=== PATIENT | female | born 1955 | race Caucasian/White ===

== ENCOUNTER → 2023-05-14 06:36 | Day surgery (SDC) | payer MEDICARE, OTHER, SELFPAY | LOC: GI 06:36 | PROVIDERS: ATTENDING PHYSICIAN Internal Medicine Gastroenterology | DX: K62.5 Hemorrhage of anus and rectum (principal); R19.7 Diarrhea, unspecified; K57.30 Diverticulosis of large intestine without perforation or abscess without bleeding; K64.0 First degree hemorrhoids; K63.89 Other specified diseases of intestine; D12.0 Benign neoplasm of cecum; D12.4 Benign neoplasm of descending colon; D12.5 Benign neoplasm of sigmoid colon; K63.5 Polyp of colon; R13.10 Dysphagia, unspecified; K44.9 Diaphragmatic hernia without obstruction or gangrene; K22.89 Other specified disease of esophagus; K31.89 Other diseases of stomach and duodenum; R11.0 Nausea; K29.50 Unspecified chronic gastritis without bleeding; K20.80 Other esophagitis without bleeding | CPT/HCPCS: 45385; 45380; 43239; 88305; 88342 ==

== ENCOUNTER → 2023-12-08 11:19 | Outpatient (REF) | payer MEDICARE, OTHER, SELFPAY ==
[2023-12-08 15:41] LABS: % Basophils 0.4 % (0-2); % Eosinophils 1.6 % (0-6); % Immature Granulocytes 0.2 % (0-0.5); % Lymphocytes 45.2 % (20.5-51.1); % Monocytes 8.9 % (1.7-9.3); % Neutrophils 43.7 % (42.2-75.2); Absolute Eosinophils 0.1 10^3/uL (0-0.7); Absolute Lymphocytes 2.3 10^3/uL (1.2-3.4); Absolute Monocytes 0.5 10^3/uL (0.1-0.6); Absolute Neutrophils 2.2 10^3/uL (1.4-6.5); Hematocrit 40.3 % (37.0-47.0); Hemoglobin 13.5 g/dL (12.0-16.0); Mean Corp Hgb Conc. 33.5 g/dL (33.0-37.0); Mean Corpuscular Hgb 28.4 pg (27.0-31.0); Mean Corpuscular Volume 84.7 fL (81.0-99.0); Mean Platelet Volume 9.5 fL (7.4-10.4); Nucleated Red Blood Cells % 0 %; Platelet Count 264 10^3/uL (130-400); Red Blood Cell Count 4.76 10^6/uL (4.20-5.40); Red Cell Dist. Width 12.1 % (11.5-14.5); White Blood Cell Count 5.1 10^3/uL (4.8-10.8)
[2023-12-08 15:52] LABS: ALT (SGPT) 24 U/L (0-35); AST (SGOT) 23 U/L (14-36); Albumin 4.7 g/dl (3.5-5.0); Alkaline Phosphatase 69 U/L (38-126); Blood Urea Nitrogen 16 mg/dl (7-17); Carbon Dioxide 27 mmol/L (22-30); Chloride 104 mmol/L (98-107); Glucose 107 mg/dl (70-99); HDL Cholesterol 67 mg/dl; LDL Cholesterol, Calculated 84 mg/dl; Potassium 4.5 mmol/L (3.5-5.1); Sodium 142 mmol/L (135-145); Total Bilirubin 0.8 mg/dl (0.2-1.3); Total Cholesterol 170 mg/dl (50-199); Triglyceride 96 mg/dl (10-149); Very Low Density Lipoprotein 19 mg/dl (0-30); eGFR > 60.00
[2023-12-08 16:09] LABS: Vitamin D, 25-OH*** 66.9 ng/mL (30-80)
[2023-12-08 16:17] LABS: Urine Albumin Negative (Neg - Trace); Urine Bilirubin Negative (Negative); Urine Character Clear (Clear); Urine Color Yellow; Urine Glucose Negative (Negative); Urine Ketone Negative (Negative); Urine Leukocyte Negative (Negative); Urine Nitrite Negative (Negative); Urine Occult Blood Negative (Negative); Urine Specific Gravity 1.015 (<1.030); Urine Urobilinogen Negative (Neg - 1+)
[2023-12-08 16:23] LABS: TSH Reflex To Free T4 1.39 uIU/ml (0.47-4.68)
[2023-12-09 08:15] LABS: Glycohemoglobin (HgbA1c) 5.6 % (4.0-5.6)
[2023-12-09 12:46] LABS: tTG IgA Antibody 5.9 EU/ml (0-19)
[2023-12-10 06:48] LABS: IgA 324 mg/dl (70-400)
== END ==
LOC: HWLAB 11:19
PROVIDERS: ATTENDING PHYSICIAN Internal Medicine Gastroenterology; FAMILY PHYSICIAN Nurse Practitioner Adult Health
DX: R19.7 Diarrhea, unspecified (principal); E78.00 Pure hypercholesterolemia, unspecified; R73.03 Prediabetes; M85.80 Other specified disorders of bone density and structure, unspecified site; I10 Essential (primary) hypertension; Q50.39 Other congenital malformation of ovary; K83.8 Other specified diseases of biliary tract
CPT/HCPCS: 36415; 80053; 80061; 81003; 82306; 82653; 82784; 83036; 83516; 83993; 84443; 85025; 87328; 87329

== ENCOUNTER → 2023-12-18 12:00 | Outpatient (REF) | payer MEDICARE, OTHER, SELFPAY ==
[2023-12-18 16:02] LABS: % Basophils 0.3 % (0-2); % Eosinophils 1.4 % (0-6); % Immature Granulocytes 0.2 % (0-0.5); % Lymphocytes 45.8 % (20.5-51.1); % Monocytes 7.2 % (1.7-9.3); % Neutrophils 45.1 % (42.2-75.2); Absolute Eosinophils 0.1 10^3/uL (0-0.7); Absolute Lymphocytes 2.9 10^3/uL (1.2-3.4); Absolute Monocytes 0.5 10^3/uL (0.1-0.6); Absolute Neutrophils 2.8 10^3/uL (1.4-6.5); Hematocrit 39.5 % (37.0-47.0); Hemoglobin 13.3 g/dL (12.0-16.0); Mean Corp Hgb Conc. 33.7 g/dL (33.0-37.0); Mean Corpuscular Hgb 29.2 pg (27.0-31.0); Mean Corpuscular Volume 86.8 fL (81.0-99.0); Nucleated Red Blood Cells % 0 %; Platelet Count 255 10^3/uL (130-400); Red Blood Cell Count 4.55 10^6/uL (4.20-5.40); Red Cell Dist. Width 12.1 % (11.5-14.5); White Blood Cell Count 6.2 10^3/uL (4.8-10.8)
[2023-12-18 16:18] LABS: C-Reactive Protein < 5.00 mg/L (0.0-10.00)
[2023-12-18 16:45] LABS: Erythrocyte Sed Rate 11 mm/hour (0-20)
[2023-12-18 16:54] LABS: Ferritin 23.8 ng/ml (11.1-264.0)
[2023-12-18 17:23] LABS: Rheumatoid Agglutinin Less Than 10 IU (<10 IU)
[2023-12-21 09:22] LABS: ANA, IgG Reflex to HEp-2 None Detected (None Detected)
[2023-12-21 10:05] LABS: CCP Antibody IgG/IgA 2 Units (0-19)
== END ==
LOC: HWLAB 12:00
PROVIDERS: ATTENDING PHYSICIAN Orthopaedic Surgery Hand Surgery; FAMILY PHYSICIAN Nurse Practitioner Adult Health
DX: M79.641 Pain in right hand (principal); M79.642 Pain in left hand
CPT/HCPCS: 36415; 82728; 85025; 85652; 86038; 86140; 86200; 86430

== ENCOUNTER → 2024-01-25 13:55 | Outpatient (REF) | payer MEDICARE, OTHER, SELFPAY | LOC: PAVMRI 13:55 | PROVIDERS: ATTENDING PHYSICIAN Nurse Practitioner Adult Health | DX: R29.818 Other symptoms and signs involving the nervous system (principal); R25.2 Cramp and spasm; H53.9 Unspecified visual disturbance | CPT/HCPCS: 70553; A9585 ==

== ENCOUNTER → 2024-01-27 10:54 | Outpatient (REF) | payer MEDICARE, OTHER, SELFPAY | LOC: PAVMRI 10:54 | PROVIDERS: ATTENDING PHYSICIAN Nurse Practitioner Adult Health | DX: K86.2 Cyst of pancreas (principal); Q50.39 Other congenital malformation of ovary | CPT/HCPCS: 72197; 74183; A9575 ==

== ENCOUNTER → 2024-03-03 12:01 | Outpatient (REF) | payer MEDICARE, OTHER, SELFPAY ==
[2024-03-03 16:11] LABS: % Basophils 0.2 % (0-2); % Eosinophils 1.1 % (0-6); % Immature Granulocytes 0.8 % (0-0.5); % Monocytes 7.8 % (1.7-9.3); % Neutrophils 47.1 % (42.2-75.2); Absolute Eosinophils 0.1 10^3/uL (0-0.7); Absolute Immature Granulocytes 0.1 10^3/uL (0-0.05); Absolute Lymphocytes 2.7 10^3/uL (1.2-3.4); Absolute Monocytes 0.5 10^3/uL (0.1-0.6); Absolute Neutrophils 2.9 10^3/uL (1.4-6.5); Hematocrit 39.9 % (37.0-47.0); Hemoglobin 12.9 g/dL (12.0-16.0); Mean Corp Hgb Conc. 32.3 g/dL (33.0-37.0); Mean Corpuscular Hgb 28.8 pg (27.0-31.0); Mean Corpuscular Volume 89.1 fL (81.0-99.0); Nucleated Red Blood Cells % 0 %; Platelet Count 309 10^3/uL (130-400); Red Blood Cell Count 4.48 10^6/uL (4.20-5.40); Red Cell Dist. Width 12.1 % (11.5-14.5); White Blood Cell Count 6.3 10^3/uL (4.8-10.8)
[2024-03-03 16:15] LABS: ALT (SGPT) 32 U/L (0-35); AST (SGOT) 27 U/L (14-36); Albumin 4.5 g/dl (3.5-5.0); Alkaline Phosphatase 74 U/L (38-126); Blood Urea Nitrogen 14 mg/dl (7-17); Calcium 9.6 mg/dl (8.4-10.2); Carbon Dioxide 25 mmol/L (22-30); Chloride 105 mmol/L (98-107); Erythrocyte Sed Rate 9 mm/hour (0-20); Glucose 91 mg/dl (70-99); HDL Cholesterol 61 mg/dl; LDL Cholesterol, Calculated 83 mg/dl; Potassium 4.5 mmol/L (3.5-5.1); Sodium 140 mmol/L (135-145); Total Bilirubin 0.6 mg/dl (0.2-1.3); Total Cholesterol 162 mg/dl (50-199); Total Protein 6.8 g/dl (6.3-8.2); Triglyceride 92 mg/dl (10-149); Very Low Density Lipoprotein 18 mg/dl (0-30); eGFR > 60.00
[2024-03-03 16:18] LABS: C-Reactive Protein < 5.00 mg/L (0.0-10.00)
[2024-03-03 17:02] LABS: Ferritin 44.8 ng/ml (11.1-264.0)
[2024-03-04 16:07] LABS: Rheumatoid Agglutinin Less Than 10 IU (<10 IU)
[2024-03-05 20:45] LABS: CCP Antibody IgG/IgA 2 Units (0-19)
[2024-03-05 22:16] LABS: ANA, IgG Reflex to HEp-2 None Detected (None Detected)
== END ==
LOC: HWLAB 12:01
PROVIDERS: ATTENDING PHYSICIAN Orthopaedic Surgery Hand Surgery; FAMILY PHYSICIAN Nurse Practitioner Adult Health
DX: M79.641 Pain in right hand (principal); M79.642 Pain in left hand; E78.00 Pure hypercholesterolemia, unspecified
CPT/HCPCS: 36415; 80053; 80061; 82728; 85025; 85652; 86038; 86140; 86200; 86430

== ENCOUNTER → 2024-05-21 11:07 | Outpatient (REF) | payer MEDICARE, OTHER, SELFPAY | LOC: MRI 3T 11:07 | PROVIDERS: ATTENDING PHYSICIAN Nurse Practitioner Adult Health | DX: M48.02 Spinal stenosis, cervical region (principal) | CPT/HCPCS: 72141 ==

== ENCOUNTER → 2024-06-15 12:08 | Outpatient (REF) | payer MEDICARE, OTHER, SELFPAY | LOC: HWRAD 12:08 | PROVIDERS: ATTENDING PHYSICIAN Nurse Practitioner Adult Health | DX: E01.0 Iodine-deficiency related diffuse (endemic) goiter (principal) | CPT/HCPCS: 76536 ==

== ENCOUNTER → 2024-06-30 12:43 | Outpatient (REF) | payer MEDICARE, OTHER, SELFPAY | LOC: HWRCS 12:43 | PROVIDERS: ATTENDING PHYSICIAN Internal Medicine Cardiovascular Disease; FAMILY PHYSICIAN Nurse Practitioner Adult Health | DX: R00.2 Palpitations (principal); R06.09 Other forms of dyspnea; R07.89 Other chest pain | CPT/HCPCS: 93306 ==

== ENCOUNTER → 2024-07-01 14:58 | Outpatient (REF) | payer MEDICARE, OTHER, SELFPAY | LOC: HWRAD 14:58 | PROVIDERS: ATTENDING PHYSICIAN Nurse Practitioner Adult Health | DX: M89.8X6 Other specified disorders of bone, lower leg (principal) | CPT/HCPCS: 73590 ==

== ENCOUNTER → 2024-07-06 12:25 | Outpatient (REF) | payer MEDICARE, OTHER, SELFPAY | LOC: HWWDC 12:25 | PROVIDERS: ATTENDING PHYSICIAN Nurse Practitioner Adult Health | DX: Z78.0 Asymptomatic menopausal state (principal); Z12.31 Encounter for screening mammogram for malignant neoplasm of breast | CPT/HCPCS: 77063; 77067; 77080 ==

== ENCOUNTER → 2024-07-07 07:21 | Outpatient (REF) | payer MEDICARE, OTHER, SELFPAY | LOC: HWRCS 07:21 | PROVIDERS: ATTENDING PHYSICIAN Internal Medicine Cardiovascular Disease; FAMILY PHYSICIAN Nurse Practitioner Adult Health | DX: R00.2 Palpitations (principal); R06.09 Other forms of dyspnea; R07.89 Other chest pain | CPT/HCPCS: 78452; 93017; A9500; J2785 ==